=== PATIENT | male | born 1980 | race Caucasian/White ===

== ENCOUNTER 2020-06-09 11:27 | Outpatient (REF) | payer OTHER, SELFPAY ==
--- NOTE | ~2020-06-09 | XR_ITS ---
EXAMINATION: XR CHEST CLINICAL INFORMATION: Recent history of Covid 19 COMPARISON: None TECHNIQUE: 2 views of the chest were obtained. FINDINGS: No significant abnormality is noted involving the heart, lungs, mediastinum, bony thorax or soft tissues. XR/XR chest 2V IMPRESSION: No acute disease.
== END 2020-06-09 11:28 | disposition home or self-care (01) ==
LOC: HO.HMGCX 11:27
PROVIDERS: PCP Internal Medicine; Visit Provider Internal Medicine
DX: R06.00 Dyspnea, unspecified (principal); Z86.16 Personal history of COVID-19
CPT/HCPCS: 71046

== ENCOUNTER 2022-08-06 09:26 | Outpatient (REF) | payer OTHER, SELFPAY ==
--- NOTE | ~2022-08-06 | XR_ITS ---
EXAMINATION: XR SHOULDER, LEFT CLINICAL INFORMATION: Shoulder pain, tenderness, rule out fracture COMPARISON: None available. TECHNIQUE: AP external rotation, Grashey, scapular Y, and axillary views of the left shoulder. FINDINGS: No evidence of acute fracture or dislocation. Mild acromioclavicular arthritis. Glenohumeral and acromioclavicular alignment is anatomic with normal joint space. No abnormal soft tissue calcifications. XR/XR shoulder LT min 2V IMPRESSION: No evidence of acute fracture or dislocation.
== END 2022-08-06 09:27 | disposition home or self-care (01) ==
LOC: HO.HMGCX 09:26
PROVIDERS: PCP Internal Medicine; Visit Provider Internal Medicine
DX: M25.512 Pain in left shoulder (principal)
CPT/HCPCS: 73030

== ENCOUNTER 2022-09-07 10:55 | Outpatient (AMB) | payer OTHER, SELFPAY ==
--- NOTE | 2022-09-07 11:00 | MHC.OFFVIS ---
Intake Intake Visit Reasons: Vasectomy consult Intake Note: New Patient presents for vasectomy consult Urology Medications: none Blood Thinner: none Children# 2 Expected Children#0 Thermal Intelligence Analyst Required: No Accompanied by: Self / Same As Patient Allergies No Known Allergies Allergy (Verified 09/07/22 12:08) Medication List - Last Reconciled 09/07/22 by MITESH VivarP-BC acetaminophen-codeine 300-30 mg 1 tab PO Q8H 3 days diazepam (Valium) 2 mg PO DAILY 2 days lorazepam 1 mg PO BID HPI HPI Comments History of Present Illness Details David is a pleasant 42 year old male patient of Dr. Lewis. He presents to the office today for - vasectomy evaluation Vasectomy evaluation The patient presents for vasectomy consultation.? He is currently He has fathered -?2 children, with a single partner. ?2 children with one partner condoms, 1 years old, The youngest child is - 1 years old His partner is aware and permissive for a vasectomy Current form of control is condoms Current employment is [employer] in the [employer] The vasectomy may be complicated due to a history of no complicating issues. Patient education has been provided via [facility] video, via printed information, risks of failure, recovery time, bruising and potential pain syndrome have been stressed Discussion today focused on the presence of vasectomy and the risks, benefits and alternatives that are available. Vasectomy as intended as a permanent form of control. Printed information and literature was provided to the patient. Overall there is a one in 2500 failure rate. This can occur at any time after vasectomy. Risks were discussed highlighting hematoma, spermatocele, epididymal congestion, development of sperm antibodies, and development of chronic pain estimated between 1-5%. The procedure was reviewed in detail. Anatomical diagrams of the male genitalia were used to explain the location of the vas deferens. The vas deferens will be transected, the proximal end will be cauterized, a metal clip would be applied to separate the 2 vas deferens ends. It was explained the procedure will be done in the office and takes approximately 10-15 minutes. Less common problems that arise with vasectomy include hematoma, bleeding, allergic reaction to anesthetic, epididymal infection, epididymal congestion, scrotal discomfort, spermatic leak, spermatic granuloma and the possibility of antisperm antibodies. He understands these risks and wishes to proceed. Consent was signed at the office today. He also understands that it takes 12 weeks for sperm to fully clear the system. He will need to provide a semen sample at 12 weeks and if this is not clear a 2nd sample at 16 weeks. Medical clearance to stop using protection will only be provided if he satisfies published criteria for sperm clearance. [facility] Surgical History (Updated 09/07/22 @ 11:06 by Anna Marie Vyas) Hx of elbow surgery Hx of knee surgery Hx of shoulder surgery Review of Systems Const All systems reviewed & are unremarkable except as noted in HPI and below Reports no additional complaints Eyes Reports no additional complaints ENT Reports no additional complaints Card Reports no additional complaints Resp Reports no additional complaints GI Reports no additional complaints Reports as per HPI Musc Reports no additional complaints Neuro Reports no additional complaints Psych Reports no additional complaints Endo Reports no additional complaints Dell/Lymph Reports no additional complaints Aller/Immun Reports no additional complaints Physical Exam Const General: cooperative, healthy appearing, comfortable, no acute distress, well developed, alert and awake Nutritional Appearance: average body habitus Orientation/consciousness: patient oriented x3 Limitations: no limitations HEENT Head: Yes normal to inspection, Yes normocephalic and Yes atraumatic Ears: hearing grossly normal bilaterally Eyes General: appearance normal, both eyes and all related structures Neck Neck: Yes normal visual inspection and Yes trachea midline Chest Chest palpation & inspection: normal inspection of the chest Resp Effort & Inspection: normal respiratory effort and able to speak in complete sentences Cardio Rate: regular rate GI Inspection: Yes normal to inspection General: Yes no CVA tenderness Penis: normal penis Meatus: meatus normal Scrotum: scrotum normal Testes: Testes normal Back/Spine/Pelvis Back: no CVA tenderness Skin General skin exam: no rashes or lesions noted Neuro General: patient oriented x3 Extrem General: Yes normal to inspection Psych Appearance: grossly normal and well kempt Mental Status: mental status grossly normal Speech and movement: Normal speech and movement present and Clear speech present Affect: normal affect Attitude: cooperative Thought process: Normal thought process present Thought content: Normal thought content present Insight: Good insight present (Psych) Judgement: Good judgement present (Psych) Results AMB Urinalysis, Automated UA Leukoctes 0 Christie/uL Last Edit by Anna Marie Vyas on 09/07/22 11:17 UA Nitrite Last Edit by Anna Marie Vyas on 09/07/22 11:17 UA Urobilinogen 0.2 mg/dL Last Edit by Anna Marie Vyas on 09/07/22 11:17 UA Protein 0 mg/dL Last Edit by Anna Marie Vyas on 09/07/22 11:17 UA pH 5.5 Last Edit by Anna Marie Vyas on 09/07/22 11:17 UA Blood 0 [place]/uL Last Edit by Anna Marie Vyas on 09/07/22 11:17 UA Specific [place] 1.025 Last Edit by Anna Marie Vyas on 09/07/22 11:17 UA Ketone Last Edit by Anna Marie Vyas on 09/07/22 11:17 UA Bilirubin 0 mg/dL Last Edit by Anna Marie Vyas on 09/07/22 11:17 UA Glucose 0 mg/dL Last Edit by Anna Marie Vyas on 09/07/22 11:17 Assessment & Plan Assessment & Plan (1) Vasectomy evaluation: Code(s): Z30.09 - Encounter for other general counseling and advice on contraception (2) Anxiety about health: Code(s): F41.8 - Other specified anxiety disorders Plan Discussed at length procedure; as noted above Scripts sent and educated to bring to office and to be taken pre-procedural All questions were answered Schedule for vasectomy with as discussed. Orders: Orders AMB Urinalysis Automated Today Z13.9 - Encounter for screening, unspecified Medications: New acetaminophen-codeine 300-30 mg 1 tab PO Q8H 3 days 9 tabs 0RF F41.8 - Other specified anxiety disorders diazepam (Valium) take one tab when arrive for procedure 2 mg PO DAILY 2 days 2 tabs 0RF anxiety F41.8 - Other specified anxiety disorders Patient Instructions: The patient had an opportunity to ask questions regarding the treatment plan. All questions were answered. Physical exam, labs, and imaging were discussed and reviewed in detail. As well as risks, benefits, and discussion of treatment choices. No major barriers to understanding were identified. The patient expressed understanding and agreement with the above treatment plan. The patient was made aware they should contact our office by phone for worsening of their current condition, the appearance of new symptoms, or with any questions or concerns. Compliance is encouraged with any medications and follow up testing that is ordered. It is a privilege to be allowed the opportunity to participate in? your urological care.? Again, if you have any questions or concerns If you have any questions or concerns please do not hesitate to contact me. The office is [phone]. This note is constructed using voice recognition software. While every effort has been made to ensure accuracy personal driver errors may have been included. Yours sincerely, MARISELA Vivar Coding Level of Care Code New Pt Level 4 (36228) Diagnoses Vasectomy evaluation Z30.09 Anxiety about health F41.8
== END 2022-09-07 12:08 | disposition home or self-care (01) ==
PROVIDERS: PCP Internal Medicine; Visit Provider Nurse Practitioner Family
DX: Z30.09 Encounter for other general counseling and advice on contraception (principal); F41.8 Other specified anxiety disorders
CPT/HCPCS: 99204

== ENCOUNTER → 2022-09-07 10:55 | Outpatient (BNVA) | payer OTHER, SELFPAY | PROVIDERS: PCP Internal Medicine; Visit Provider Nurse Practitioner Family ==

== ENCOUNTER 2022-09-25 07:19 | Outpatient (REF) | payer OTHER, SELFPAY ==
--- NOTE | ~2022-09-25 | MR_ITS ---
EXAMINATION: MR SHOULDER WITHOUT CONTRAST, LEFT CLINICAL INFORMATION: Left shoulder pain. Acromioclavicular joint pain. Evaluate for a tear. COMPARISON: Left shoulder radiographs dated 08/06/2022. TECHNIQUE: Multisequence MR imaging of the left shoulder was obtained without contrast on a high field strength scanner. FINDINGS: ROTATOR CUFF: Supraspinatus tendinosis. On coronal images there is a linear area of fluid signal which contacts both the superior bursal surface as well as the more distal articular surface measuring up to 1.3 cm in ML dimension and likely indicate a focal full thickness rotator cuff tendon tear. Mild infraspinatus tendinosis with bursal surface fraying/partial tearing measuring 1.3 x 1.3 cm. Minimal teres minor muscle atrophy. BICEPS: Intact. CORACOACROMIAL ARCH: The undersurface of the acromion is curved with no subacromial spur. Moderate acromioclavicular osteoarthritis. There is marrow and capsular edema adjacent to the acromioclavicular joint which could represent a nondisplaced acromioclavicular joint injury or be the sequela of an overuse injury. Trace fluid and edema within the subacromial subdeltoid bursa, consistent with minimal bursitis. LABRUM/CAPSULE: Intact. GLENOHUMERAL JOINT/MARROW: Unremarkable. MR/MR shoulder LT wo con IMPRESSION: 1. Supraspinatus tendinosis with a focal full-thickness rotator cuff tendon tear measuring 1.3 cm in ML dimension. Mild infraspinatus tendinosis with bursal surface fraying/partial tearing. Minimal teres minor muscle atrophy. 2. Moderate acromioclavicular osteoarthritis. Marrow and capsular edema adjacent to the AC joint which could represent a nondisplaced acromioclavicular joint injury or be the sequela of an overuse injury. 3. Minimal subacromial subdeltoid bursitis.
== END 2022-09-25 07:20 | disposition home or self-care (01) ==
LOC: HO.MRI 07:19
PROVIDERS: PCP Internal Medicine; Visit Provider Internal Medicine
DX: M25.512 Pain in left shoulder (principal)
CPT/HCPCS: 73221

== ENCOUNTER 2022-11-30 14:51 | Outpatient (AMB) | payer OTHER, SELFPAY ==
--- NOTE | 2022-11-30 15:10 | MHC.OFFVIS ---
Intake Intake Visit Reasons: Vasectomy Intake Note: Patient presents for vasectomy Urology Medications: none Blood Thinner: none Utility Maintenance Worker Required: No Accompanied by: Self / Same As Patient Allergies No Known Allergies Allergy (Verified 11/30/22 15:11) HPI HPI Comments History of Present Illness Details David is a pleasant 42 year old male patient of Dr. Lewis. He presents to the office today for - vasectomy evaluation Vasectomy procedure today Vasectomy procedure The patient presents for vasectomy consultation.? He is currently He has fathered -?2 children, with a single partner. ?2 children with one partner condoms, 1 years old, The youngest child is - 1 years old His partner is aware and permissive for a vasectomy Current form of control is condoms PFSH Surgical History (Updated 09/07/22 @ 11:06 by Anna Marie Vyas) Hx of knee surgery Hx of elbow surgery Hx of shoulder surgery Review of Systems Const Denies chills and Denies fever(s) Card Reports no additional complaints and Denies syncope Resp Denies cough GI Denies abdominal pain and Denies heartburn Reports as per HPI and Denies change in libido Neuro Denies syncope Psych Denies change in libido Endo Denies change in libido Physical Exam Const General: cooperative, healthy appearing, comfortable and no acute distress Orientation/consciousness: patient oriented x3 HEENT Face and sinus: Yes normal facial exam Mouth: moist mucous membranes Neck Neck: Yes normal visual inspection, Yes full ROM and Yes trachea midline Chest Chest palpation & inspection: normal inspection of the chest Resp Effort & Inspection: normal respiratory effort, able to speak in complete sentences and no respiratory distress GI Inspection: Yes normal to inspection Back/Spine/Pelvis Cervical Spine: normal cervical lordosis Thoracic/Lumbar Spine: thoracic and lumbar spine normal to inspection Skin General skin exam: no rashes or lesions noted Neuro General: patient oriented x3, gait normal, tone normal and moves all extremities Extrem General: Yes normal to inspection and Yes capillary refill normal Office Procedures Vasectomy Details: Preoperative diagnosis: Anxiety regarding Postoperative diagnosis: Anxiety regarding unplanned Procedure: Bilateral vasectomy Informed consent had been completed. Preoperative and postoperative instructions were provided to the patient. The patient has transportation to home identified at the completion of the procedure. Anti-anxiolytic prescription medication had been taken after consent verification and all questions answered. Tylenol with Codeine pain medication was also provided. The penis was elevated using a rubber band that was attached to the patient's shirt. Both vasa were palpated through the skin using a 3 finger technique and the penoscrotal junction was prepped with Betadine. After Betadine application the left vas was elevated using a 3 finger grasping technique. 1% lidocaine was used to create a subdermal bubble. Approximately 2 minutes were allowed to for local anesthetic uptake. Further anesthetic was then advanced using the 25-gauge needle along the vasa in a proximal fashion. Using the sharp spreading instrument the scrotum was spread longitudinally in line with the vasa. The vasa was elevated from the scrotum using a ring clamp. Care was taken to elevate the superior portion of the vas. Using the sharp spreading instrument the vasal sheath was removed from the covering of this segment of the vas. A fresh knife blade was used to partially divide the vasal sheath and to strip the vasal sheath from the vasa. The vasa was grasped with an Addson forcep and elevated from the incision. The ring clamp was placed so it grasped the elevated vas. The vasal sheath was dissected from the vaas in a proximal and distal fashion. This allowed the blood vessels of the vasa to retract from the vasa. Using the battery-powered cautery a partial division was made in the proximal vas. The battery-powered cautery was used to cauterize the proximal end of the vas. This was then cut and allowed to retract into the vasal sheath. A clip was placed on the vasal sheath to create a fascial interposition. The distal portion of the vas was then cut in order to obtain a segment of vasa. The vasa were allowed to retract back into the scrotum. A small snap was then used to approximate the skin edges. A similar procedure was repeated on the right side. He tolerated the procedure well. Triple antibiotic was applied. A gauze was applied. An ice pack was applied to assist with minimizing swelling. Postoperative instructions were confirmed. He understands the need to continue to use control methods. A semen sample should be brought for inspection under the microscope in 10-12 weeks. CPT 86562 Vasectomy performed by: Charles Franco Informed consent given: Yes Informed consent signed: Yes Time out checklist: patient, procedure, site marked/identified, positioning of patient, supplies available, allergies confirmed and team agrees on procedure 53886 - Vasectomy Assessment & Plan Assessment & Plan (1) Anxiety about health: Code(s): F41.8 - Other specified anxiety disorders Patient Instructions: Imaging studies, laboratory and physical exam results were discussed and reviewed in detail. No major barriers to patient understanding were identified. An opportunity to ask questions regarding the treatment plan was provided. All questions were answered. The patient expressed understanding and agreement with the above treatment plan. The patient is aware they should contact our office by phone for worsening of their current condition or the appearance of new urologic symptoms. Compliance is encouraged with any medications and followup testing that is ordered. It is a privilege to participate in the urologic care of your patient. If you have any questions or concerns regarding treatment for the above conditions, or other urologic issues, please do not hesitate to contact me. The office telephone contact is [phone]. This note is constructed using voice recognition software. While every effort has been made to ensure accuracy truck washer errors may have been included. Yours sincerely, Dr Charles Franco MD, [facility] - Urology Providers of Expert, Compassionate Care for the Genitourinary System Coding Level of Care Code Procedure Only Diagnoses Anxiety about health F41.8 CPT Codes Office Procedure - CPT: 53349 - Vasectomy ([id number])
== END 2022-11-30 15:48 | disposition home or self-care (01) ==
PROVIDERS: PCP Internal Medicine; Visit Provider Urology
DX: Z30.2 Encounter for sterilization (principal); F41.8 Other specified anxiety disorders
CPT/HCPCS: 55250

== ENCOUNTER → 2022-11-30 14:51 | Outpatient (BNVA) | payer OTHER, SELFPAY | PROVIDERS: PCP Internal Medicine; Visit Provider Urology | DX: Z30.2 Encounter for sterilization (principal); F41.8 Other specified anxiety disorders | CPT/HCPCS: 55250 ==

== ENCOUNTER 2023-02-26 09:02 | Outpatient (AMB) | payer OTHER, SELFPAY ==
--- NOTE | 2023-02-26 09:09 | MHC.OFFVIS ---
Intake Intake Visit Reasons: 3m seman analysis Intake Note: Patient is Present for Follow Up Vasectomy Urology Medication: None Antibiotic Allergies: None Blood Thinners: None Patient presented with Semen Sample Allergies No Known Allergies Allergy (Verified 02/26/23 09:10) HPI HPI Comments History of Present Illness Details David is a pleasant 42 year old male patient of Dr. Lewis. He presents to the office today for - vasectomy evaluation Follow-up for vasectomy Did have some pain following procedure This eventually resolved No sperm seen on high-powered field evaluation Vasectomy procedure The patient presents for vasectomy consultation.? He is currently He has fathered -?2 children, with a single partner. ?2 children with one partner condoms, 1 years old, The youngest child is - 1 years old His partner is aware and permissive for a vasectomy Current form of control is condoms PFSH Surgical History Hx of knee surgery Hx of elbow surgery Hx of shoulder surgery Review of Systems Const Denies chills and Denies fever(s) Card Reports no additional complaints and Denies syncope Resp Denies cough GI Denies abdominal pain and Denies heartburn Reports as per HPI and Denies change in libido Neuro Denies syncope Psych Denies change in libido Endo Denies change in libido Physical Exam Const General: cooperative, healthy appearing, comfortable and no acute distress Orientation/consciousness: patient oriented x3 HEENT Face and sinus: Yes normal facial exam Mouth: moist mucous membranes Neck Neck: Yes normal visual inspection, Yes full ROM and Yes trachea midline Chest Chest palpation & inspection: normal inspection of the chest Resp Effort & Inspection: normal respiratory effort, able to speak in complete sentences and no respiratory distress GI Inspection: Yes normal to inspection Back/Spine/Pelvis Cervical Spine: normal cervical lordosis Thoracic/Lumbar Spine: thoracic and lumbar spine normal to inspection Skin General skin exam: no rashes or lesions noted Neuro General: patient oriented x3, gait normal, tone normal and moves all extremities Extrem General: Yes normal to inspection and Yes capillary refill normal Assessment & Plan Assessment & Plan (1) Anxiety about health: Code(s): F41.8 - Other specified anxiety disorders Plan P.r.n. follow-up Patient Instructions: Imaging studies, laboratory and physical exam results were discussed and reviewed in detail. No major barriers to patient understanding were identified. An opportunity to ask questions regarding the treatment plan was provided. All questions were answered. The patient expressed understanding and agreement with the above treatment plan. The patient is aware they should contact our office by phone for worsening of their current condition or the appearance of new urologic symptoms. Compliance is encouraged with any medications and followup testing that is ordered. It is a privilege to participate in the urologic care of your patient. If you have any questions or concerns regarding treatment for the above conditions, or other urologic issues, please do not hesitate to contact me. The office telephone contact is [phone]. This note is constructed using voice recognition software. While every effort has been made to ensure accuracy slitter scorer cut off operator errors may have been included. Yours sincerely, Dr Charles Franco MD, [facility] - Urology Providers of Expert, Compassionate Care for the Genitourinary System Coding Level of Care Code Est Pt Level 3 (31438) Diagnoses Anxiety about health F41.8
== END 2023-02-26 09:27 | disposition home or self-care (01) ==
PROVIDERS: PCP Internal Medicine; Visit Provider Urology
DX: F41.8 Other specified anxiety disorders (principal)
CPT/HCPCS: 99024

== ENCOUNTER → 2023-02-26 09:02 | Outpatient (BNVA) | payer OTHER, SELFPAY | PROVIDERS: PCP Internal Medicine; Visit Provider Urology ==

== ENCOUNTER 2024-01-01 15:05 | Outpatient (REF) | payer OTHER, SELFPAY ==
[2024-01-01 15:32] LABS: MANUAL DIFF FLAG NO
[2024-01-01 16:04] LABS: Basophils Percent Auto 0.3 % (0-2); Eosinophils Absolute Auto 0.2 X10*3/uL (0.0-0.4); Eosinophils Percent Auto 2.3 % (0-4); Hematocrit 47.6 % (42.0-52.0); Hemoglobin 16.1 g/dl (14.0-18.0); Imm Gran Abs Auto 0.09 X10*3/uL (0.00-0.03); Lymphocytes Absolute Auto 2.3 X10*3/uL (1.2-4.9); Lymphocytes Percent Auto 27.2 % (20-40); Mean Corpuscular HGB Conc 33.8 g/dl (31.0-36.0); Mean Corpuscular Hemoglobin 31.3 pg (27.0-33.0); Mean Corpuscular Volume 92.4 fL (80.0-98.0); Mean Platelet Volume 10.6 fL (9.4-12.4); Monocytes Absolute Auto 0.5 X10*3/uL (0.1-1.2); Monocytes Percent Auto 6.3 % (2-11); Neutrophils Absolute Auto 5.4 x10*3/uL (2.0-8.3); Neutrophils Percent Auto 62.9 % (45-73); Platelet Count 205 X10*3/uL (160-400); Red Blood Count 5.15 X10*6/uL (4.60-5.80); Red Cell Distribution Width 12.8 % (11.0-16.0); White Blood Count 8.6 X10*3/uL (4.8-10.8)
[2024-01-01 17:01] LABS: Alanine Aminotransferase 16 U/L (0-40); Albumin Level 4.3 g/dL (3.5-5.0); Alkaline Phosphatase 70 U/L (39-117); Anion Gap 14 (12-20); Aspartate Amino Transferase 19 U/L (5-37); Bilirubin Direct 0.4 mg/dL (0.0-0.5); Blood Urea Nitrogen 15 mg/dL (9-16); C Reactive Protein 0.11 mg/dL (< or = 0.50); Calcium 9.4 mg/dL (8.4-10.2); Carbon Dioxide 24 mmol/L (22-29); Chloride 105 mmol/L (96-108); Estimated Glomerular Filt Rate > 60; Glucose Random 84 mg/dL (60-115); Potassium 3.6 mmol/L (3.3-5.1); Sodium 139 mmol/L (135-145); Total Protein 7.3 g/dL (6.5-8.0)
[2024-01-01 17:03] LABS: T4 Thyroxine 5.1 ug/dL (4.5-12.0); Thyroid Stimulating Hormone 1.27 uIU/mL (0.32-4.0)
[2024-01-03 19:38] LABS: Immunoglobulin A 393 mg/dL (47-310); Transglutaminase IgA <1.0 U/mL
== END 2024-01-01 15:06 | disposition home or self-care (01) ==
LOC: HO.LAB 15:05
PROVIDERS: PCP Internal Medicine; Visit Provider Internal Medicine
DX: K52.9 Noninfective gastroenteritis and colitis, unspecified (principal)
CPT/HCPCS: 36415; 80048; 80076; 82784; 84436; 84443; 85025; 86140; 86364

== ENCOUNTER 2024-01-05 15:18 | Outpatient (REF) | payer OTHER, SELFPAY ==
[2024-01-06 16:37] LABS: Leukocytes Stool Qualitative NEGATIVE (NEGATIVE)
[2024-01-07 05:39] LABS: CDiff Gene PCR NEGATIVE (Negative)
[2024-01-07 15:44] LABS: Adenovirus F 40/41 Not Detected (Not Detect.); Astrovirus Not Detected (Not Detect.); Campylobacter Not Detected (Not Detect.); Cryptosporidium Not Detected (Not Detect.); Cyclospora cayetanensis Not Detected (Not Detect.); E. coli EAEC Not Detected (Not Detect.); E. coli EPEC Not Detected (Not Detect.); E. coli ETEC Not Detected (Not Detect.); E. coli STEC Not Detected (Not Detect.); Entamoeba histolytica Not Detected (Not Detect.); Giardia lamblia Not Detected (Not Detect.); Norovirus GI/GII Not Detected (Not Detect.); Plesiomonas shigelloides Not Detected (Not Detect.); Rotavirus A Not Detected (Not Detect.); Salmonella Not Detected (Not Detect.); Sapovirus Not Detected (Not Detect.); Shigella sp./EIEC Not Detected (Not Detect.); Vibrio Not Detected (Not Detect.); Vibrio Cholerae Not Detected (Not Detect.); Yersinia enterocolitica Not Detected (Not Detect.)
[2024-01-12 16:13] LABS: Fecal Fat Qualitative Normal (Normal)
[2024-01-14 21:48] LABS: Pancreatic Elastase-1 >800 mcg/g (>200)
[2024-01-16 11:44] LABS: Chymotrypsin, Stool 35.4 U/g (2.3-51.4)
[2024-01-17 20:13] LABS: Calprotectin, Fecal 5 mcg/g
== END 2024-01-05 15:19 | disposition home or self-care (01) ==
LOC: HO.LNP 15:18
PROVIDERS: Visit Provider Internal Medicine
DX: K52.9 Noninfective gastroenteritis and colitis, unspecified (principal)
CPT/HCPCS: 82656; 82705; 83993; 87329; 87493; 87507; 89055

== ENCOUNTER 2024-01-09 11:51 | Day surgery (SDC) | payer OTHER, SELFPAY ==
--- NOTE | 2024-01-08 09:35 | HO.ANESPROP2 ---
Documented by User: Niurka Perera NP 01/08/24 09:35 HPI - Anesthesia Eval Consult details Narrative: 43yo M for Upper Endoscopy and Colonoscopy PMFSH Active Problems Active Problems: All Active Problems Anxiety about health (Acute) Vasectomy evaluation (Acute) Surgical History Surgical History H/O vasectomy Hx of knee surgery Hx of elbow surgery Hx of shoulder surgery Social History Social History Patient Tobacco Use Status: Never used Tobacco Use of substances other than those prescribed or required for medical reasons: Yes Substance Use Type Other:: Occasionally for sleep; last used >4d Are you DNR?: No Advance Directives: No Advance Directives Information Provided: Yes Meds Allergies Allergy/AdvReac Type Severity Reaction Status Date / Time No Known Allergies Allergy Verified 02/26/23 09:10 Home Medications ?Medication ?Instructions ?Recorded ?Confirmed ?Last Taken ?Type No Known Home Meds 01/08/24 01/08/24 Unknown History Assessment and Plan Assessment Anesthesia Assessment: Chart Reviewed Documented by User: Ada Rosales MD 01/09/24 16:15 PMFSH Family History Family history of problems with anesthesia: No Surgical History Surgical History H/O vasectomy Hx of knee surgery Hx of elbow surgery Hx of shoulder surgery History of Problems with Anesthesia: No Social History Social History Patient Tobacco Use Status: Never used Tobacco Use of substances other than those prescribed or required for medical reasons: Yes Substance Use Type Other:: Occasionally for sleep; last used >4d Are you DNR?: No Advance Directives: No Advance Directives Information Provided: Yes Meds Allergies Allergy/AdvReac Type Severity Reaction Status Date / Time No Known Allergies Allergy Verified 02/26/23 09:10 Home Medications ?Medication ?Instructions ?Recorded ?Confirmed ?Last Taken ?Type No Known Home Meds 01/08/24 01/08/24 Unknown History Exam Airway TM Dist: >3cm Neck ROM: Full Heart: rrr Lungs: cta Assessment and Plan Assessment Anesthesia Assessment: Anesthesia Plan Discussed Final Anesthetic Review Family History of Problems with Anesthesia: No History of Problems with Anesthesia: No NPO: Yes ASA Class: II Final Preanesthetic Review: No Changes in Pt Med Stat, Meds/Allgs Chart Reviewed, Consent Obtained/Reviewed and Anes Risks/Benef Reviewed Patient Risk: Low Procedure Risk: Low Anesthetic Plan Anesthetic Plan: MAC: Disposition: Standard PACU
[2024-01-09 12:13] VITALS: BMI 21.9
[2024-01-09 12:28] VITALS: BP 118/84; PULSE 69; RESP 16; TEMP 37.1; O2SAT 99
[2024-01-09] MEDS: Lactated Ringers 1,000 ML 100 ML IVCONT (12:33)
[2024-01-09 14:25] VITALS: BP 113/70; PULSE 77; RESP 16; TEMP 36.1; O2SAT 96
--- NOTE | 2024-01-09 14:31 | PM.OP ---
Brief Operative Note Date of Service: 01/09/24 Pre-op diagnosis: Diarrhea Post-op diagnosis: other (Hiatal hernia, GERD, Gastritis, Diverticulosis, Internal hemorrhoids) Procedure: EGD with biopsies, Colonoscopy to the cecum and TI with biopsies Surgeon: Camilo Maria MD Anesthesia: MAC Was an Cold Molding Press Operator used for this Procedure?: No Estimated blood loss (mL): 2.0 Pathology: other (A. Descending duodenum B. Gastric antrum C. EG Junction at 38cm D. Ascending colon E. Terminal ileum F. Descending colon) Condition: stable Disposition: PACU
[2024-01-09 14:40] VITALS: BP 146/97; PULSE 65; RESP 18; TEMP 36.4; O2SAT 99
--- NOTE | 2024-01-10 03:10 | OP_ITS ---
DATE OF SERVICE: 01/09/2024 SURGEON: Camilo Maria MD INDICATIONS: The patient presents for evaluation of chronic diarrhea. Full consent has been obtained from him for this, including risks of bleeding and perforation. PREOPERATIVE DIAGNOSIS: Chronic diarrhea. POSTOPERATIVE DIAGNOSIS: PROCEDURE PERFORMED: Esophagogastroduodenoscopy with biopsies, and colonoscopy to the cecum and terminal ileum with biopsies. ESTIMATED BLOOD LOSS: COMPLICATIONS: ANESTHESIA: Medication used, monitored anesthesia care. ASSISTANTS: SPECIMENS: POSTOPERATIVE DIAGNOSES: Chronic diarrhea, hiatal hernia, changes of gastroesophageal reflux, rule out Woodall's esophagus, mild gastritis, rule out celiac disease, rule out microscopic colitis, diverticulosis, internal hemorrhoids. DESCRIPTION OF PROCEDURE: The patient was placed in the left lateral decubitus position. The Olympus video gastroscope was passed in the posterior oropharynx and upper esophagus under direct vision. The scope was passed slowly to the distal esophagus. The gastroesophageal junction appeared at 38 cm. There was some evidence of reflux with some edema, erythema, and some slight irregularity with changes consistent with possible Woodall's mucosa. There was no gross evidence of esophagitis. There was a small hiatal hernia. The scope was advanced to pylorus and the duodenum was cannulated to the descending portion. The duodenum including the bulb appeared normal without mass or ulceration. Biopsies were obtained of the descending duodenum. The scope was withdrawn back to the stomach. The gastric antrum had some mild areas of erythema and edema but no erosions or ulceration. There was good peristalsis. Biopsies were obtained of the antrum. The scope was retroflexed visualizing the proximal stomach carefully which appeared normal, without any sign of mass or ulceration. The scope was straightened and withdrawn back to the esophagus. Biopsies were obtained the EG junction at 38 cm. Proximal to that the esophageal mucosa appeared normal. The scope was withdrawn from the patient. He was turned around for colonoscopy. The digital rectal exam revealed no abnormalities. The Olympus video pediatric colonoscope was entered into the rectum and advanced easily to the cecum. Once in the cecum I did identify normal-appearing cecal pouch with appendiceal orifice and a normal-appearing ileocecal valve. The terminal ileum was cannulated and appeared normal. Biopsies were obtained. The scope was withdrawn back to the cecum. The entire cecum and ileocecal valve appeared normal. The scope was slowly withdrawn assessing all mucosal surfaces carefully. Preparation was excellent. I did not visualize any sign of polyps, colitis, nor angiodysplasias. Random biopsies were obtained in the ascending colon and descending colon to rule out microscopic colitis. There was a mild amount of sigmoid diverticulosis. In the rectum, scope was retroflexed visualizing internal hemorrhoids, but no other pathology. The rectal mucosa appeared normal. The scope was straightened and withdrawn the patient. He tolerated both procedures well and was returned to recovery area in stable condition. IMPRESSION: 1. Hiatal hernia, gastroesophageal reflux, rule out Woodall's esophagus. 2. Mild gastritis. 3. Rule out celiac disease. 4. Rule out microscopic colitis. 5. Diverticulosis. 6. Internal hemorrhoids. PLAN: The results of the biopsies will be checked. He was advised not to use any aspirin and NSAIDs for 1 week. In regard to the diarrhea, I have recommended that he start some [id number] Imodium on a daily or twice a day basis to see if that can help alleviate some of the loose bowel movements he describes. He was advised to avoid any particular foods that might bother him such as dairy and caffeine. I advised him I will be in touch with the results of the biopsies. His laboratories and some stool specimens have been negative, although other stool specimens are pending for pancreatic insufficiency studies. My office will also contact him to make a followup appointment to see me as well. He was advised to call sooner as needed. This has all been discussed with his . Of note, if the biopsies from the gastroesophageal junction do show changes of Woodall's esophagus without dysplasia, then we would want a repeat an upper endoscopy in 3 years. He should have a repeat colonoscopy in 10 years for further screening as well. At this point, he is not having any symptoms of reflux and we could probably hold off on treating him for that even if Woodall esophagus is seen. This will be discussed with him at a followup office visit as well. If diarrhea persist without any definitive etiology noted we could put him on a trial of cholestyramine powder. MD ATTILA Lake/MILENA / [id number] ERICA
== END 2024-01-09 15:34 | disposition home or self-care (01) ==
PROVIDERS: PCP Internal Medicine; Visit Provider Internal Medicine
PROC: (CPT 45380; principal; 2024-01-09 13:00)
DX: K52.9 Noninfective gastroenteritis and colitis, unspecified (principal); K57.30 Diverticulosis of large intestine without perforation or abscess without bleeding; K64.8 Other hemorrhoids; K21.9 Gastro-esophageal reflux disease without esophagitis; K29.50 Unspecified chronic gastritis without bleeding; K44.9 Diaphragmatic hernia without obstruction or gangrene; Z98.890 Other specified postprocedural states; Z98.52 Vasectomy status
CPT/HCPCS: 45380; 43239; 88305; 88313; 88342; J2003; J2250; J2704